=== PATIENT | male | born 1975 | race Caucasian/White ===

== ENCOUNTER 2019-05-01 18:58 | Emergency (ER) | payer OTHER ==
[~2019-05-01] VITALS: Ht 185.4 cm; Wt 97.5 kg
== END 2019-05-01 22:38 | disposition home or self-care (01) ==
LOC: ER 18:58
DX: S93.491A Sprain of other ligament of right ankle, initial encounter (principal); X50.0XXA Overexertion from strenuous movement or load, initial encounter; Y93.59 Activity, other involving other sports and athletics played individually; Y92.018 Other place in single-family (private) house as the place of occurrence of the external cause; Y99.8 Other external cause status